=== PATIENT | male | born 1990 | race African-American/Black ===

== ENCOUNTER 2021-06-02 09:41 | Emergency (ER) | payer MEDICAID ==
[~2021-06-02] VITALS: Ht 172.7 cm; Wt 61.2 kg
[~2021-06-02 09:41] MED LIST: ACET-8386 PO
[2021-06-02 10:21] VITALS: BP 111/63
[2021-06-02] MEDS ORDERED: ALBU0.0912 IH (11:45)
[2021-06-02] MEDS ORDERED: NAPR-54 PO (11:45)
[2021-06-02] MEDS ORDERED: PROM118S5 PO (11:45)
[2021-06-02 12:42] VITALS: BP 117/72
--- NOTE | 2021-06-02 12:42 | NUR ---
NO NURSING INTERVENTIONS DONE. NO COMPLETE INTERVENTIONS.
--- NOTE | 2021-06-02 12:43 | NUR ---
Patient discharged with v/s stable. Written and verbal after care instructions given FOR VIRAL ILLNESS and explained. Patient alert, oriented and verbalized understanding of instructions. Ambulatory with steady gait. All questions addressed prior to discharge. ID band removed. Patient advised to follow up with PMD. Rx of ALBUTEROL, NAPROXEN, AND PREMETHAZINE given. Patient educated on indication of medication including possible reaction and side effects. Opportunity to ask questions provided and answered.
== END 2021-06-02 12:43 | disposition home or self-care (01) ==
LOC: MED 09:41
DX: B34.9 Viral infection, unspecified (principal); Z79.899 Other long term (current) drug therapy; Z98.890 Other specified postprocedural states
CPT/HCPCS: 71045; 99282; 99283

== ENCOUNTER 2022-09-20 | Emergency (ER) | payer MEDICAID ==
[~2022-09-20] VITALS: Ht 172.7 cm; Wt 63.5 kg
[~2022-09-20] MED LIST changes: -ACET-8386 PO; +ACET-8905 PO; +ALBU0.0912 IH; +NAPR-54 PO; +PROM118S5 PO
--- NOTE | 2022-09-20 00:18 | NUR ---
TO LOBBY A/W BED AMBULATORY
[2022-09-20] MEDS ORDERED: FLUORESCEIN OPTH STRIP 1 MG OP ONE (00:40)
[2022-09-20] MEDS ORDERED: TETRACAINE HCL/PF 0.5% OPTH 4 ML BTL OP ONE (00:40)
--- NOTE | 2022-09-20 02:48 | NUR ---
Amnada dover in ED - 09/20/22 at 0300 by [email or web address] pt ambulatory to bed #6 with mother bedside
--- NOTE | 2022-09-20 02:55 | NUR ---
32 Y/O M presents with R eye pain 02/19 [id number] due to something flying into his eye. pt stated part of a tree or plummer. pt states he has a headache and a runny nose since this happened. pt denies any NVD, SOB. pt is A&Ox4, skin intact, ambulatory without assistance. PMH-pt denies NKA
--- NOTE | 2022-09-20 03:00 | NUR ---
pt bedside with girlfriend
[2022-09-20] MEDS ORDERED: KETOROLAC 30 MG/ML VIAL IM ONE (03:05)
[2022-09-20] MEDS ORDERED: IBUP-2213 PO (03:46)
[2022-09-20] MEDS ORDERED: ACET-8905 PO (03:46)
[2022-09-20] MEDS ORDERED: TOBR5SOL38 RIGHT EYE (03:46)
--- NOTE | 2022-09-20 03:58 | NUR ---
Patient discharged with v/s stable. Written and verbal after care instructions given and explained. Patient alert, oriented and verbalized understanding of instructions. Ambulatory with steady gait. All questions addressed prior to discharge. ID band removed. Patient advised to follow up with PMD. Rx of hydrocodone, ibuprofen, and tobramycin given. Opportunity to ask questions provided and answered. Dr. Renteria's orders reinforced
== END 2022-09-20 03:58 | disposition home or self-care (01) ==
LOC: MED
DX: S05.01XA Injury of conjunctiva and corneal abrasion without foreign body, right eye, initial encounter (principal); H10.11 Acute atopic conjunctivitis, right eye; Z79.899 Other long term (current) drug therapy; Z79.1 Long term (current) use of non-steroidal anti-inflammatories (NSAID); Z79.2 Long term (current) use of antibiotics; Z79.891 Long term (current) use of opiate analgesic; X58.XXXA Exposure to other specified factors, initial encounter; Y92.89 Other specified places as the place of occurrence of the external cause; Y93.89 Activity, other specified; Y99.8 Other external cause status
CPT/HCPCS: 96372; 99283; J1885